=== PATIENT | male | born 1975 | race Caucasian/White ===

== ENCOUNTER 2021-04-20 11:26 | Emergency (ER) | payer BC ==
[~2021-04-20] VITALS: Ht 180.3 cm; Wt 122.5 kg
[~2021-04-20 11:26] MED LIST: FLEXERIL 10 MG10 MG PO; IBUPROFEN800 MG PO
== END 2021-04-20 13:50 | disposition home or self-care (01) ==
LOC: ER1 11:26
DX: Z23 Encounter for immunization (principal); U07.1 COVID-19; E11.9 Type 2 diabetes mellitus without complications
CPT/HCPCS: 99283; M0243